=== PATIENT | female | born 1945 | race Caucasian/White ===

== ENCOUNTER → 2017-01-03 | Day surgery (SDC) | payer MEDICARE, BC ==
[~2017-01-03] MED LIST: ATEN25TA PO; BIOT300T PO; BUPIVACAINE/EPINEPHRINE 0.25% 50 ML VIAL ONE; BUPIVACAINE/EPINEPHRINE 0.5% PF 30 ML VIAL ONE; CALCTAB6 PO; CHOL1TAB42 PO; LACTATED RINGER'S 1000 ML INJ 1,000 ML ONE; LIDOCAINE 1%/EPINEPHrine 1:100,000 SOLN 20 ML VIAL ONE; MIDAZOLAM HCL 2 MG/2 ML VIAL ONE; MULT-135 PO; NEOMYCIN/POLYMYXIN/BACITRACIN OINT 15 GM TUBE ONE; ONDANSETRON HCL 4 MG/2 ML VIAL IV PUSH ONE; PROPOFOL 200 MG/20 ML AMP IV ONE; SODIUM CHLORIDE 0.9% 250 ML ADDBAG IV ONE; VANCOMYCIN HCL 1000 MG VIAL ONE; ZYRT10TA PO; ceFAZolin INJ 1,000 MG VIAL ONE
--- NOTE | 2017-01-03 10:55 | TN ---
cc: RUDOLPH NAPOLES M.D. DATE OF SURGERY 01/03/2017 PREOPERATIVE DIAGNOSIS Persistent draining wound x3 in the nipple-areolar complex right breast with skin lesions. POSTOPERATIVE DIAGNOSIS Persistent draining wound x3 in the nipple-areolar complex right breast with skin lesions, subcutaneous suture removal. PROCEDURE Excision of three chronic draining wounds at the 1 o'clock position, at the 5 o'clock position, and 11 o'clock position of the right nipple-areolar complex with removal of foreign body at the 11 o'clock position coursing to the 5 o'clock position of [place] suture. ANESTHESIA TIVA with local SURGEON Rudolph Napoles MD INDICATIONS This is a pleasant 71-year female who had some breast reconstruction. She has had these chronic draining wound at the 1, 5 and 11 o'clock position. She is desirous for surgical treatment. PROCEDURE The patient taken to the operating room, placed in the supine position. After IV antibiotics and time-out, the breast is prepped with Betadine. We had previously marked these three areas. An elliptical incision measuring approximately 1 x 1-1/2 cm is made at the one o 'clock position in a slightly vertical fashion to completely excise the offending lesion to the deep subcutaneous tissue. It is passed off the field. It is then closed with a interrupted 4-0 nylon suture. We then direct our attention to the 5 o'clock position. An elliptical incision is made along the nipple-areolar complex edge and the offending lesion is removed with an elliptical incision measuring approximately 1 x 1-1/2 cm. The skin is then reapproximated with a 4-0 nylon. A similar elliptical incision 1 x 1-1/2 cm made at the 11 o'clock position after anesthetizing with Marcaine solution. A [place] suture was found at this site and retrieved. It seemed to be coursing to the 1 o'clock position and the 5 o'clock position. This was sent down to pathology with the 11 o'clock position specimen. All three areas were irrigated and they were all closed with a 4-0 nylon suture. Steri-Strips were applied. A sterile bandage was applied. The patient tolerated the procedure well and had no immediate postop complications. Rudolph Napoles MD JSKYE/DJL /10:28 AM /10:40 AM [place]
== END | disposition home or self-care (01) ==
LOC: ESDC 08:48
PROVIDERS: ATTEND Surgery
DX: N61.1 Abscess of the breast and nipple (principal); T81.89XA Other complications of procedures, not elsewhere classified, initial encounter
CPT/HCPCS: 00400; 19020; 88305; J2250; J2405; J3010; J3370; J7120; J0690

== ENCOUNTER 2018-02-05 11:06 | Emergency (ER) | payer MEDICARE, BC ==
[2018-02-05] MEDS: oxyCODONE/ACETAMINOPHEN 5 MG/325 MG TAB PO ×2 (12:15→14:37)
== END 2018-02-05 14:54 | disposition home or self-care (01) ==
LOC: PHEFT 11:06
DX: S72.402A Unspecified fracture of lower end of left femur, initial encounter for closed fracture (principal); J45.909 Unspecified asthma, uncomplicated; I10 Essential (primary) hypertension; W01.0XXA Fall on same level from slipping, tripping and stumbling without subsequent striking against object, initial encounter; Y92.89 Other specified places as the place of occurrence of the external cause; Z86.12 Personal history of poliomyelitis; Z79.899 Other long term (current) drug therapy; Z88.6 Allergy status to analgesic agent; Z88.8 Allergy status to other drugs, medicaments and biological substances
CPT/HCPCS: 73564; 73700; 99284

== ENCOUNTER 2018-09-30 17:24 | Inpatient (IN) ==
--- NOTE | 2018-09-30 17:57 | ED ---
HPI General Chief Complaint: Fall Stated Complaint: Fall Time Seen by Provider: 09/30/18 17:37 Source: patient Mode of arrival: EMS History of Present Illness HPI Narrative: Patient is a 73-year-old female presented to the emergency room via EMS status post fall with complaints of left hip pain and inability to move her left leg. Patient has history of a hairline left femur fracture in January of this year. She also has a history of polio in the left leg in 1955. She reports that she was getting ready to go out for [place] when she slipped on a scarf and fell landing on her left hip. Denies any dizziness prior to the fall and denies hitting her head. Denies any loss of consciousness. Patient was unable to get up or move her leg immediately after the fall. Related Data Home Medications Medication Instructions Recorded Confirmed Zyrtec-D 10 mg PO QAM 09/30/18 09/30/18 atenolol 25 mg PO BID PRN 09/30/18 09/30/18 estradiol-norethindrone acet 0.5 tab PO DAILY 09/30/18 09/30/18 [Activella] lisinopril 10 mg PO DAILY PRN 09/30/18 09/30/18 Allergies Allergy/AdvReac Type Severity Reaction Status Date / Time aspirin Allergy Wheezing Verified 09/30/18 18:12 cephalexin [From Keflex] Allergy Wheezing Verified 09/30/18 18:15 ibuprofen Allergy Wheezing Verified 09/30/18 18:15 ketorolac [From Toradol] Allergy Wheezing Verified 09/30/18 18:15 metoprolol Allergy Wheezing Verified 09/30/18 21:19 Review of Systems ROS: all other systems reviewed are negative PMFSH Surgical History Surgical History Hx of breast augmentation (Acute) Social History Social History Substance History: No History of Abuse Second Hand Smoke Exposure: No Smoking Status: Never smoker How Often Do You Have a Drink Containing Alcohol: Monthly or less Recent Travel in [facility] within the Last 8 Weeks: No Recent Out of Country Travel within the Last 8 Weeks: No Immunization History Tetanus Immunization: <5 Years Exam Narrative Exam Narrative: GENERAL: Well-nourished, well-developed patient. SKIN: Focused skin assessment warm/dry. HEAD: Normocephalic. EYES: No scleral icterus. No injection or drainage. NECK: Supple, trachea midline. No JVD or lymphadenopathy. CARDIOVASCULAR: Regular rate and rhythm without murmurs, gallops, or rubs. RESPIRATORY: Breath sounds equal bilaterally. No accessory muscle use. GASTROINTESTINAL: Abdomen soft, non-tender, nondistended. MUSCULOSKELETAL: Left leg shortened and externally rotated. Muscle wasting noted left calf. Course Initial Documented Vital Signs Temperature 98.9 F 09/30/18 17:35 Pulse Rate 70 09/30/18 17:35 Respiratory Rate 20 09/30/18 17:35 Blood Pressure 150/67 H 09/30/18 17:35 Pulse Oximetry 100 09/30/18 17:35 Last Documented Vital Signs Temperature 98.1 F 10/01/18 08:00 Pulse Rate 62 10/01/18 08:00 Respiratory Rate 16 10/01/18 08:00 Blood Pressure 107/56 L 10/01/18 08:00 Pulse Oximetry 96 10/01/18 08:00 Medical Decision Making MDM Narrative Medical decision making narrative: Patient is a 73-year-old female with history of polio, who presents the emergency room status post fall earlier this afternoon. Reports she slipped on a scarf and fell landing on her left hip. She was unable to get up or move status post fall. Patient brought here via EMS. She was given 8 mg of morphine in route and now rates her pain a 6 out of 10. X-ray left hip and pelvis ordered. CBC, CMP, PT, PTT, and UA ordered. X-ray shows a left femoral intertrochanteric fracture. Spoke with Ellen Nelson, who advised admission. N.p.o. after midnight. Spoke with Dr. Hirsch who accepts admission. Medical Screen Exam Complete: Yes Emergency Medical Condition: Yes Differential Diagnosis Differential Diagnosis: Hip fracture/Femoral fracture/hip dislocation Lab Data Result diagrams: 10/01/18 06:19 10/01/18 06:19 Lab Results 09/30/18 09/30/18 09/30/18 Range/Units 17:55 17:55 17:55 WBC 13.1 H (4.0-11.0) th/mm3 RBC 4.11 (4.00-5.30) mil/mm3 Hgb 13.1 (11.6-15.3) gm/dL Hct 38.5 (35.0-46.0) % MCV 93.8 (80.0-100.0) fL MCH 31.8 (27.0-34.0) pg MCHC 33.9 (32.0-36.0) % RDW 13.5 (11.6-17.2) % Plt Count 255 (150-450) th/mm3 MPV 8.1 (7.0-11.0) fL Neut % (Auto) 85.7 H (16.0-70.0) % Lymph % (Auto) 8.9 L (9.0-44.0) % Antelope % (Auto) 4.8 (0.0-8.0) % Eos % (Auto) 0.3 (0.0-4.0) % Baso % (Auto) 0.3 (0.0-2.0) % Neut # (Auto) 11.3 H (1.8-7.7) th/mm3 Lymph # (Auto) 1.2 (1.0-4.8) th/mm3 Antelope # (Auto) 0.6 (0.0-0.9) th/mm3 Eos # (Auto) 0.0 (0.0-0.4) th/mm3 Baso # (Auto) 0.0 (0.0-0.2) th/mm3 WBC Differential . Differential Comment Auto diff final PT 11.3 (9.8-11.6) sec INR 1.1 Ratio APTT 26.1 (23.4-31.7) sec Sodium 138 (136-145) meq/L Potassium 3.5 (3.5-5.1) meq/L Chloride 105 (98-107) meq/L Carbon Dioxide 27.4 (21.0-32.0) meq/L Anion Gap 6 (5-15) meq/L BUN 15 (7-18) mg/dL Creatinine 0.51 (0.50-1.00) mg/dL Estimated GFR Greater than 89 (>89) mL/min Random Glucose 101 (74-106) mg/dL Calcium 8.3 L (8.5-10.1) mg/dL Total Bilirubin 0.6 (0.2-1.0) mg/dL AST 19 (15-37) U/L ALT 26 (10-53) U/L Alkaline Phosphatase 77 (45-117) U/L Total Protein 7.0 (6.4-8.2) g/dL Albumin 3.6 (3.4-5.0) g/dL Urine Color (Yellw/Straw) Urine Clarity (Clear) Urine pH (5.0-8.5) Ur Specific [place] (1.002-1.035) Urine Protein (Neg-Trace) mg/dL Urine Glucose (UA) (Negative) mg/dL Urine Ketones (Negative) mg/dL Urine Occult Blood (Negative) Urine Nitrate (Negative) Urine Bilirubin (Negative) Urine Urobilinogen (Less than 2) mg/dL Ur Leukocyte Esterase (Negative) Urine RBC (0-3) /hpf Urine WBC (0-5) /hpf Ur Squamous Epith Cells (0-5) /hpf Urine Mucus (Occasional) /lpf Micro UA Comment Ur Microscopic Review Urine Culture Comments 09/30/18 10/01/18 10/01/18 Range/Units 17:55 06:19 06:19 WBC 10.0 (4.0-11.0) th/mm3 RBC 3.82 L (4.00-5.30) mil/mm3 Hgb 12.2 (11.6-15.3) gm/dL Hct 36.1 (35.0-46.0) % MCV 94.3 (80.0-100.0) fL MCH 31.9 (27.0-34.0) pg MCHC 33.9 (32.0-36.0) % RDW 13.7 (11.6-17.2) % Plt Count 240 (150-450) th/mm3 MPV 8.3 (7.0-11.0) fL Neut % (Auto) 71.7 H (16.0-70.0) % Lymph % (Auto) 18.8 (9.0-44.0) % Antelope % (Auto) 8.4 H (0.0-8.0) % Eos % (Auto) 0.8 (0.0-4.0) % Baso % (Auto) 0.3 (0.0-2.0) % Neut # (Auto) 7.2 (1.8-7.7) th/mm3 Lymph # (Auto) 1.9 (1.0-4.8) th/mm3 Antelope # (Auto) 0.8 (0.0-0.9) th/mm3 Eos # (Auto) 0.1 (0.0-0.4) th/mm3 Baso # (Auto) 0.0 (0.0-0.2) th/mm3 WBC Differential . Differential Comment Auto diff final PT (9.8-11.6) sec INR Ratio APTT (23.4-31.7) sec Sodium 138 (136-145) meq/L Potassium 3.5 (3.5-5.1) meq/L Chloride 105 (98-107) meq/L Carbon Dioxide 27.0 (21.0-32.0) meq/L Anion Gap 6 (5-15) meq/L BUN 13 (7-18) mg/dL Creatinine 0.52 (0.50-1.00) mg/dL Estimated GFR Greater than 89 (>89) mL/min Random Glucose 104 (74-106) mg/dL Calcium 7.7 L (8.5-10.1) mg/dL Total Bilirubin 0.6 (0.2-1.0) mg/dL AST 18 (15-37) U/L ALT 24 (10-53) U/L Alkaline Phosphatase 69 (45-117) U/L Total Protein 6.7 (6.4-8.2) g/dL Albumin 3.1 L (3.4-5.0) g/dL Urine Color Yellow (Yellw/Straw) Urine Clarity Hazy H (Clear) Urine pH 7.0 (5.0-8.5) Ur Specific [place] 1.013 (1.002-1.035) Urine Protein Negative (Neg-Trace) mg/dL Urine Glucose (UA) Negative (Negative) mg/dL Urine Ketones Trace H (Negative) mg/dL Urine Occult Blood Negative (Negative) Urine Nitrate Negative (Negative) Urine Bilirubin Negative (Negative) Urine Urobilinogen Less than 2 (Less than 2) mg/dL Ur Leukocyte Esterase Negative (Negative) Urine RBC 1 (0-3) /hpf Urine WBC 1 (0-5) /hpf Ur Squamous Epith Cells 5 (0-5) /hpf Urine Mucus Few H (Occasional) /lpf Micro UA Comment Culture not ind Ur Microscopic Review Not Reportable Urine Culture Comments Culture not ind Imaging Data Radiologist's impression: Femur X-Ray 09/30/18 17:38 CONCLUSION: 1. Comminuted left femoral intertrochanteric fracture. Hip X-Ray 09/30/18 17:38 CONCLUSION: 1. Comminuted intertrochanteric left femoral fracture. Discharge Plan Discharge Disposition Patient Disposition: ED Admit(ED Internal Use Only) Discharge Condition Condition: Stable Discharge Order Discharge Orders: ED Use Only Admit Order (Routine); Ordered 09/30/18 Ordered By: Nellie Curtis Discharge Details Diagnosis: Closed intertrochanteric fracture Physicians Team ED Provider: Lucretia Jang ED Midlevel Provider: Nellie Curtis Primary Care Provider: marleen Nelson Christophe C Attending Provider: Mayelin Montano Other Providers: Syed Antonio Status ED Status: Left Department Discharge Information Discharge Date/Time: 09/30/18 21:55
[2018-09-30] MEDS: Morphine Inj 4 MG/ML Vial IV.PUSH PRN (18:13)
[2018-09-30 18:17] LABS: Baso % (Auto) 0.3 % (0.0-2.0); Eos % (Auto) 0.3 % (0.0-4.0); Hematocrit 38.5 % (35.0-46.0); Hemoglobin 13.1 gm/dL (11.6-15.3); Lymph # (Auto) 1.2 th/mm3 (1.0-4.8); Lymph % (Auto) 8.9 % (9.0-44.0); Mean Corpuscular HGB Conc 33.9 % (32.0-36.0); Mean Corpuscular Hemoglobin 31.8 pg (27.0-34.0); Mean Corpuscular Volume 93.8 fL (80.0-100.0); Mean Platelet Volume 8.1 fL (7.0-11.0); Mono # (Auto) 0.6 th/mm3 (0.0-0.9); Mono % (Auto) 4.8 % (0.0-8.0); Neut # (Auto) 11.3 th/mm3 (1.8-7.7); Neut % (Auto) 85.7 % (16.0-70.0); Platelet Count 255 th/mm3 (150-450); Red Blood Count 4.11 mil/mm3 (4.00-5.30); Red Cell Distribution Width 13.5 % (11.6-17.2); White Blood Count 13.1 th/mm3 (4.0-11.0)
[2018-09-30 18:27] LABS: Albumin 3.6 g/dL (3.4-5.0); Anion Gap 6 meq/L (5-15); Aspartate Aminotransferase 19 U/L (15-37); Blood Urea Nitrogen 15 mg/dL (7-18); Calcium 8.3 mg/dL (8.5-10.1); Carbon Dioxide 27.4 meq/L (21.0-32.0); Chloride 105 meq/L (98-107); Glomerular Filtration Rate Greater Than 89 mL/min (>89); Glucose,Random 101 mg/dL (74-106); Potassium 3.5 meq/L (3.5-5.1); Sodium 138 meq/L (136-145)
[2018-09-30 18:28] LABS: Activated Partial Thrombo Time 26.1 sec (23.4-31.7); INR 1.1 Ratio; Prothrombin Time 11.3 sec (9.8-11.6)
[2018-09-30 18:30] LABS: Alanine Aminotransferase 26 U/L (10-53); Alkaline Phosphatase 77 U/L (45-117)
[2018-09-30 18:36] LABS: Bilirubin,Urine Negative (Negative); Clarity,Urine Hazy (Clear); Color,Urine Yellow (Yellw/Straw); Glucose,Urine (UA) Negative (Negative); Leukocyte Esterase,Urine Negative (Negative); Mucus,Urine Few /lpf (Occasional); Nitrite,Urine Negative (Negative); Specific Gravity,Urine 1.013 (1.002-1.035); Squamous Epithelial Cell,Urine 5 /hpf (0-5)
--- NOTE | 2018-09-30 18:47 | XR ---
EXAM DATE: 09/30/2018 6:39 PM EST AGE/SEX: 73 years / Female INDICATIONS: Left hip pain, fell CLINICAL DATA: This is the patient's initial encounter. Patient reports that signs and symptoms have been present for 1 day and indicates a pain score of 10/10. MEDICAL/SURGICAL HISTORY: None. None. COMPARISON: [facility], FEMUR LEFT 2V, 09/30/2018. . FINDINGS: There is a comminuted angulated intertrochanteric fracture of the left femur. Soft tissues are grossl y unremarkable. Remaining osseous structures appear intact. No radiopaque foreign bodies. CONCLUSION: 1. Comminuted intertrochanteric left femoral fracture. Electronically signed by: Flynn Parks MD Board Certified Radiologist 09/30/2018 6:46 PM ES T
--- NOTE | 2018-09-30 18:49 | XR ---
EXAM DATE: 09/30/2018 6:38 PM EST AGE/SEX: 73 years / Female INDICATIONS: Left proximal femur pain, fell CLINICAL DATA: This is the patient's initial encounter. Patient reports that signs and symptoms have been present for 1 day and indicates a pain score of 10/10. MEDICAL/SURGICAL HISTORY: None. None. COMPARISON: [facility], CT KNEE LEFT W/O CONTRAST, 02/05/2018. . FINDINGS: Comminuted angulated intertrochanteric fracture of the left femoral neck. Remaining visualized osseou s structures are intact. Soft tissues are grossly unremarkable. CONCLUSION: 1. Comminuted left femoral intertrochanteric fracture. Electronically signed by: Flynn Parks MD Board Certified Radiologist 09/30/2018 6:48 PM RUBY T
[2018-09-30] MEDS ORDERED: Naloxone Inj 0.4 MG/ML Vial IV.PUSH PRN (19:28)
[2018-09-30] MEDS ORDERED: Bisacodyl 10 MG Supp RECTAL PRN (19:28)
--- NOTE | 2018-09-30 19:30 | P.HPIM ---
History of Present Illness Primary Care Physician: Syed Seals Mai, m.d., History of Present Illness: This is a 73-year-old female with a PMH of HTN, Asthma and h/o Polio who was brought to the ER by EMS for c/o left hip pain after a fall. Pt states she was getting ready to go out when she tripped over a scarf, landed on left hip, +severe pain, 10/10, non-radiating, worse w/ movement. H/o left femur hairline fracture January 2018 for which she follows w/ Dr. Morillo. No other injuries reported, no LOC or head trauma. On arrival, BP 150/67, HR 70, O2 sat 100% on 2L NC, Afebrile. WBC 13.1. Chemistry unremarkable. UA negative. Hip X-ray comminuted intertrochanteric left femoral fracture. Dr. Antonio consulted, plan is for surgery tomorrow. Diagnosis (1) Closed intertrochanteric fracture: (2) Fall: (3) Leukocytosis: Inpatient Certification Inpatient Certification: I certify that the inpatient services were ordered in accordance with Medicare regulations governing the order. This includes certification that hospital inpatient services are reasonable and necessary and in the case of services not specified as inpatient-only under 42 CFR 419.22(n), that they are appropriately provided as inpatient services in accordance to with the 2-midnight benchmark under 43 CFR 412.3(e) Estimated Total Length of Stay (Days): 2 Plans for Post Hospital Care: Not yet determined Review of Systems PAST FAMILY HISTORY: Reviewed. No h/o DM or CAD Review of Systems: all other systems reviewed are negative [facility] Social History Social History Substance History: No History of Abuse Second Hand Smoke Exposure: No Smoking Status: Never smoker How Often Do You Have a Drink Containing Alcohol: Monthly or less Recent Travel in [place] within the Last 8 Weeks: No Recent Out of Country Travel within the Last 8 Weeks: No Immunization History Tetanus Immunization: <5 Years Medications and Allergies Allergies Allergy/AdvReac Type Severity Reaction Status Date / Time aspirin Allergy Wheezing Verified 09/30/18 18:12 cephalexin [From Keflex] Allergy Wheezing Verified 09/30/18 18:15 ibuprofen Allergy Wheezing Verified 09/30/18 18:15 ketorolac [From Toradol] Allergy Wheezing Verified 09/30/18 18:15 metoprolol Allergy Wheezing Verified 09/30/18 21:19 Home Medications Medication Instructions Recorded Confirmed Type Zyrtec-D 10 mg PO QAM 09/30/18 09/30/18 History atenolol 25 mg PO BID PRN 09/30/18 09/30/18 History estradiol-norethindrone acet 0.5 tab PO DAILY 09/30/18 09/30/18 History [Activella] lisinopril 10 mg PO DAILY PRN 09/30/18 09/30/18 History Active Medications: Active Medications Acetaminophen (Tylenol) 650 mg PO Q4H PRN PRN Reason: Temp > 100.4 Al Hydroxide/Mg Hydroxide (Milk Of Magnesia Liq) 30 ml PO Q12H PRN PRN Reason: Mild Constipation Bisacodyl (Dulcolax Supp) 10 mg RECTAL DAILY PRN PRN Reason: SEVERE CONSITIPATION Lactulose (Lactulose Liq) 30 ml PO DAILY PRN PRN Reason: SEVERE CONSITIPATION Morphine Sulfate (Morphine Inj) 4 mg IV.PUSH Q4H PRN PRN Reason: Acute Pain Last Admin: 09/30/18 18:13 Dose: 4 mg Physical Exam Vital signs: Last Vital Signs Temp 98.9 F 09/30/18 17:35 Pulse 70 09/30/18 17:35 Resp 20 09/30/18 17:35 BP 150/67 H 09/30/18 17:35 Pulse Ox 100 09/30/18 17:35 Intake & Output 09/28/18 09/29/18 09/30/18 10/01/18 06:59 06:59 06:59 06:59 Weight 63.503 kg Narrative: PE: GENERAL: Very pleasant middle-aged white female in no acute distress. SKIN: Focused skin assessment warm and dry. HEENT: PERRLA, EOMI. No scleral icterus or conjunctival pallor. No lid lag or facial droop. CARDIOVASCULAR: Regular rate and rhythm. No obvious murmurs to auscultation. No chest tenderness to palpation. RESPIRATORY: No obvious rhonchi or wheezing. Clear to auscultation. Breath sounds equal bilaterally. GASTROINTESTINAL: Abdomen soft, non-tender, nondistended. BS normal. MUSCULOSKELETAL: Extremities without clubbing, cyanosis, or edema. No obvious deformities. Decreased ROM of LLE due to injury NEUROLOGICAL: Awake, alert and oriented x4. No focal neurologic deficits. Moving both upper and lower extremities spontaneously. PSYCHIATRIC: Appropriate mood and affect. Insight and judgment normal. Results Labs CBC & Chem 7: 09/30/18 17:55 09/30/18 17:55 Imaging Impressions Femur X-Ray 09/30/18 17:38 CONCLUSION: 1. Comminuted left femoral intertrochanteric fracture. Hip X-Ray 09/30/18 17:38 CONCLUSION: 1. Comminuted intertrochanteric left femoral fracture. Caprini VTE Risk Assessment Caprini VTE Risk Assessment: No/Low Risk (score <= 1) Caprini Risk Assessment Model: Point Value = 1 Point Value = 2 Point Value = 3 Point Value = 5 Age 41-60 Minor surgery BMI > 25 kg/m2 Swollen legs Varicose veins or History of unexplained or recurrent spontaneous Oral contraceptives or hormone replacement Sepsis (< 1 month) Serious lung disease, including pneumonia (< 1 month) Abnormal pulmonary function Acute myocardial infarction Congestive heart failure (< 1 month) History of inflammatory bowel disease Medical patient at bed rest Age 61-74 Arthroscopic surgery Major open surgery (> 45 min) Laparoscopic surgery (> 45 min) Malignancy Confined to bed (> 72 hours) Immobilizing plaster cast Central venous access Age >= 75 History of VTE Family history of VTE Factor V Leiden Prothrombin [id number] Lupus anticoagulant Anticardiolipin antibodies Elevated serum homocysteine Heparin-induced thrombocytopenia Other congenital or acquired thrombophilia Stroke (< 1 month) Elective arthroplasty Hip, pelvis, or leg fracture Acute spinal cord injury (< 1 month) Prophylaxis Regimen: Total Risk Factor Score Risk Level Prophylaxis Regimen 0-1 Low Early ambulation 2 Moderate Order ONE of the following: *Sequential Compression Device (SCD) *Heparin 5000 units SQ BID 3-4 Higher Order ONE of the following medications: *Heparin 5000 units SQ TID *Enoxaparin/Lovenox 40 mg SQ daily (WT < 150 kg, CrCl > 30 mL/min) *Enoxaparin/Lovenox 30 mg SQ daily (WT < 150 kg, CrCl > 10-29 mL/min) *Enoxaparin/Lovenox 30 mg SQ BID (WT < 150 kg, CrCl > 30 mL/min) AND/OR *Sequential Compression Device (SCD) 5 or more Highest Order ONE of the following medications: *Heparin 5000 units SQ TID (Preferred with Epidurals) *Enoxaparin/Lovenox 40 mg SQ daily (WT < 150 kg, CrCl > 30 mL/min) *Enoxaparin/Lovenox 30 mg SQ daily (WT < 150 kg, CrCl > 10-29 mL/min) *Enoxaparin/Lovenox 30 mg SQ BID (WT < 150 kg, CrCl > 30 mL/min) AND *Sequential Compression Device (SCD) Assessment and Plan (1) Closed intertrochanteric fracture: Code(s): S72.143A - Displaced intertrochanteric fracture of unspecified femur, initial encounter for closed fracture Status: Acute (2) Fall: Code(s): W19.XXXA - Unspecified fall, initial encounter Status: Acute (3) Leukocytosis: Code(s): D72.829 - Elevated white blood cell count, unspecified Status: Acute Plan A/P: 1. Fall: s/p mechanical fall, no head trauma or LOC reported, no other injuries noted. 2. Left Hip Fx: Hip X-ray w/ comminuted left intertrochanteric hip fracture, Dr. Antonio consulted, plan for surgical intervention, NPO after midnight, analgesics/antiemetics as needed. 3. Leukocytosis: WBC 13, likely related to fall/injury, no obvious infectious etiology noted, will repeat labs in am. 4. DVT Prophylaxis: Anticoagulation post op 5. Social work for d/c planning as needed. 6. Case discussed w/ ER physician at length, labs/records/imaging reviewed by me.
[2018-09-30] MEDS ORDERED: Morphine Inj 4 MG/ML Vial IV.PUSH PRN (19:45)
[2018-09-30] MEDS: Sod Chloride 0.9% Inj 1,000 ML IV.CONT SCH (19:58)
[2018-09-30] MEDS: Senna/Docusate Sodium 8.6/50 MG Tablet PO SCH (22:31)
[2018-09-30] MEDS ORDERED: Atenolol 25 MG Tablet PO PRN (22:55)
[2018-10-01] MEDS: Morphine Inj 4 MG/ML Vial IV.PUSH PRN ×5 (00:19→23:40)
[2018-10-01] MEDS ORDERED: Chlorhexidine Gluconate 2% 1 Pack (2 Cloths) TOPICAL ONE (02:47)
[2018-10-01] MEDS ORDERED: Sodium Chlor 0.9% Inj 500 ML IV.SIG SCH (03:00)
[2018-10-01] MEDS: Sod Chloride 0.9% Inj 1,000 ML IV.CONT SCH ×2 (06:00→19:15)
[2018-10-01 07:15] LABS: Baso % (Auto) 0.3 % (0.0-2.0); Eos # (Auto) 0.1 th/mm3 (0.0-0.4); Eos % (Auto) 0.8 % (0.0-4.0); Hematocrit 36.1 % (35.0-46.0); Hemoglobin 12.2 gm/dL (11.6-15.3); Lymph # (Auto) 1.9 th/mm3 (1.0-4.8); Lymph % (Auto) 18.8 % (9.0-44.0); Mean Corpuscular HGB Conc 33.9 % (32.0-36.0); Mean Corpuscular Hemoglobin 31.9 pg (27.0-34.0); Mean Corpuscular Volume 94.3 fL (80.0-100.0); Mean Platelet Volume 8.3 fL (7.0-11.0); Mono # (Auto) 0.8 th/mm3 (0.0-0.9); Mono % (Auto) 8.4 % (0.0-8.0); Neut # (Auto) 7.2 th/mm3 (1.8-7.7); Neut % (Auto) 71.7 % (16.0-70.0); Platelet Count 240 th/mm3 (150-450); Red Blood Count 3.82 mil/mm3 (4.00-5.30); Red Cell Distribution Width 13.7 % (11.6-17.2)
[2018-10-01 07:29] LABS: Albumin 3.1 g/dL (3.4-5.0); Anion Gap 6 meq/L (5-15); Aspartate Aminotransferase 18 U/L (15-37); Blood Urea Nitrogen 13 mg/dL (7-18); Calcium 7.7 mg/dL (8.5-10.1); Chloride 105 meq/L (98-107); Glomerular Filtration Rate Greater Than 89 mL/min (>89); Glucose,Random 104 mg/dL (74-106); Potassium 3.5 meq/L (3.5-5.1); Sodium 138 meq/L (136-145)
[2018-10-01 07:31] LABS: Alanine Aminotransferase 24 U/L (10-53)
[2018-10-01 07:33] LABS: Alkaline Phosphatase 69 U/L (45-117); Total Protein 6.7 g/dL (6.4-8.2)
[2018-10-01] MEDS ORDERED: Albumin Human 25% Inj 0 ML IV.SIG ONE (08:24)
[2018-10-01] MEDS: Lisinopril 10 MG Tablet PO SCH (10:38)
[2018-10-01] MEDS: Senna/Docusate Sodium 8.6/50 MG Tablet PO SCH ×2 (10:38→20:00)
--- NOTE | 2018-10-01 14:54 | P.PNIM ---
Subjective Interval history: The patient is in bed she appears in not acute distress at this time. No pain. However patient is anxious regarding surgery today and she is refusing surgery today she wants surgery tomorrow and also by Dr. Evans. Will advance diet. Orthopedic doctor also came and evaluated the patient and spoke with the patient regarding pros and cons of postponing surgery. Patient decided to do surgery tomorrow she understands surgery might be postponed. Patient has no fever or chills. Pain is fairly controlled by medications. Physical Exam Vital signs: Last Vital Signs Temp 98.1 F 10/01/18 12:00 Pulse 62 10/01/18 12:00 Resp 16 10/01/18 12:00 BP 109/55 L 10/01/18 12:00 Pulse Ox 95 10/01/18 12:00 Intake & Output 09/29/18 09/30/18 10/01/18 10/02/18 06:59 06:59 06:59 06:59 Intake Total 1000 / 1000 Balance 1000 / 1000 Weight 67.3 kg Narrative: PE: GENERAL: Very pleasant middle-aged white female in no acute distress. SKIN: Focused skin assessment warm and dry. HEENT: PERRLA, EOMI. No scleral icterus or conjunctival pallor. No lid lag or facial droop. CARDIOVASCULAR: Regular rate and rhythm. No obvious murmurs to auscultation. No chest tenderness to palpation. RESPIRATORY: No obvious rhonchi or wheezing. Clear to auscultation. Breath sounds equal bilaterally. GASTROINTESTINAL: Abdomen soft, non-tender, nondistended. BS normal. MUSCULOSKELETAL: Extremities without clubbing, cyanosis, or edema. No obvious deformities. Decreased ROM of LLE due to injury NEUROLOGICAL: Awake, alert and oriented x4. No focal neurologic deficits. Moving both upper and lower extremities spontaneously. PSYCHIATRIC: Appropriate mood and affect. Insight and judgment normal. Results Labs CBC & Chem 7: 10/01/18 06:19 10/01/18 06:19 Imaging Imaging: Impressions Femur X-Ray 09/30/18 17:38 CONCLUSION: 1. Comminuted left femoral intertrochanteric fracture. Hip X-Ray 09/30/18 17:38 CONCLUSION: 1. Comminuted intertrochanteric left femoral fracture. Assessment and Plan (1) Closed intertrochanteric fracture: Code(s): S72.143A - Displaced intertrochanteric fracture of unspecified femur, initial encounter for closed fracture Status: Acute (2) Fall: Code(s): W19.XXXA - Unspecified fall, initial encounter Status: Acute (3) Leukocytosis: Code(s): D72.829 - Elevated white blood cell count, unspecified Status: Acute Plan Fall s/p mechanical fall, no head trauma or LOC reported, no other injuries noted. Left Hip Fx: Hip X-ray w/ comminuted left intertrochanteric hip fracture, Dr. Antonio consulted, plan for surgical intervention, NPO after midnight, analgesics/antiemetics as needed. Leukocytosis: WBC 13, likely related to fall/injury, no obvious infectious etiology noted, will repeat labs in am. Patient with a h/o severe osteoporosis H/o poliomyelitis DVT Prophylaxis: Anticoagulation post op CM consulted for d/c planning as needed. Case discussed with the patient,. family at bedside, orthopedic doctor Plan for surgery tomorrow Progress Note: Quality VTE Deep Vein Thrombosis/Pulmonary Embolism Present on Admission: No
--- NOTE | 2018-10-01 15:41 | ECG ---
Date Performed: 09/30/2018 Time Performed: 22:27:46 PTAGE: 73 years EKG: Sinus rhythm Compared to previous tracing, previous Left axis deviation has resolved NORMAL ECG PREVIOUS TRACING : 04/19/2016 08.19 DOCTOR: Anil Pastor Interpretating Date/Time 10/01/2018 15:40:33
--- NOTE | 2018-10-01 17:00 | P.CONOP ---
[facility] Orthopedics Consult Note - [facility] Consult date: 10/01/18 Consult reason: fracture Chief complaint: Intertrochanteric fracture Narrative: 73-year-old female with history of asthma, hypertension, polio. Sustained a mechanical fall while celebrating resulting in a left intertrochanteric femur fracture. She endorsed acute onset hip pain and inability to bear weight. Patient uses a walker at baseline given underlying diagnosis of polio. She denies paresthesias to lower extremity. She denies right lower or bilateral upper extremity complaint. Review of Systems Constitutional: Denies chills, Denies fever(s) Ears, Nose, Mouth, and Throat: Denies headache(s) Cardiovascular: Denies chest pain Respiratory: Denies cough, Denies wheezing Gastrointestinal: Denies abdominal pain Musculoskeletal: Reports joint pain Neurologic: Denies tingling/numbness/burning sensations Psychiatric: Denies anxiety, Denies depression PMFSH - History History Provided By: Patient - Medical History Medical History: Medical History (Last Reviewed 10/01/18 @ 07:45 by Isrrael Peterson) Asthma HTN (hypertension) Polio - Surgical History Surgical History: Surgical History (Last Updated 09/30/18 @ 23:56 by Emilie Santana RN) Hx of breast augmentation - Tobacco History Second Hand Smoke Exposure: No Smoking Status: Never smoker - Alcohol History How Often Do You Have a Drink Containing Alcohol: Monthly or less - Substance Use History Substance History: No History of Abuse - Travel History Recent Travel in the [place] Within the Last 8 Weeks: No Recent Travel Out of the Country Within the Last 8 Weeks: No - Immunization History Tetanus Immunization: <5 Years Hx Influenza Vaccine This Season: Yes Medications and Allergies Active Medications: Active Medications Acetaminophen (Tylenol) 650 mg PO Q4H PRN PRN Reason: Temp > 100.4 Al Hydroxide/Mg Hydroxide (Milk Of Magnesia Liq) 30 ml PO Q12H PRN PRN Reason: Mild Constipation Atenolol (Tenormin) 25 mg PO BID PRN PRN Reason: Hypertension Bisacodyl (Dulcolax Supp) 10 mg RECTAL DAILY PRN PRN Reason: SEVERE CONSITIPATION Sodium Chloride (Ns Inj) 1,000 mls @ 100 mls/hr IV.CONT .Q10H [facility] Last Admin: 10/01/18 06:00 Dose: 100 mls/hr Sodium Chloride (Ns Inj) 500 mls @ 30 mls/hr IV.SIG .Q10H [facility] Last Admin: 10/01/18 12:02 Dose: Not Given Lactated Ringer's (Lr 1000 Ml Inj) 1,000 mls @ 30 mls/hr IV.SIG .Q24H [facility] Stop: 10/02/18 02:59 Lactulose (Lactulose Liq) 30 ml PO DAILY PRN PRN Reason: SEVERE CONSITIPATION Lisinopril (Prinivil) 10 mg PO DAILY [facility] Last Admin: 10/01/18 10:38 Dose: Not Given Morphine Sulfate (Morphine Inj) 4 mg IV.PUSH Q4H PRN PRN Reason: Acute Pain Last Admin: 10/01/18 10:29 Dose: 4 mg Morphine Sulfate (Morphine Inj) 2 mg IV.PUSH Q4H PRN PRN Reason: PAIN 6-10 Last Admin: 09/30/18 20:17 Dose: 2 mg Naloxone HCl (Narcan Inj) 0.4 mg IV.PUSH UNSCH PRN PRN Reason: SEE LABEL COMMENTS Ondansetron HCl (Zofran Inj) 4 mg IV.PUSH Q6H PRN PRN Reason: NAUSEA OR VOMITING Last Admin: 10/01/18 10:29 Dose: 4 mg Oxycodone/Acetaminophen (Percocet 5/325 Mg) 1 tab PO Q4H PRN PRN Reason: PAIN SCALE 3 TO 5 Senna/Docusate Sodium (Katarina-Colace) 1 tab PO BID [facility] Last Admin: 10/01/18 10:38 Dose: Not Given Sennosides (Senokot) 17.2 mg PO Q12H PRN PRN Reason: Moderate Constipation Sodium Chloride (Ns Flush) 2 ml IV.FLUSH BID [facility] Last Admin: 10/01/18 10:39 Dose: Not Given Sodium Chloride (Ns Flush) 2 ml IV.FLUSH PRN PRN PRN Reason: FLUSH AFTER USING IV ACCESS Allergies Allergy/AdvReac Type Severity Reaction Status Date / Time aspirin Allergy Wheezing Verified 09/30/18 18:12 cephalexin [From Keflex] Allergy Wheezing Verified 09/30/18 18:15 ibuprofen Allergy Wheezing Verified 09/30/18 18:15 ketorolac [From Toradol] Allergy Wheezing Verified 09/30/18 18:15 metoprolol Allergy Wheezing Verified 09/30/18 21:19 Home Medications Medication Instructions Recorded Confirmed Type Zyrtec-D 10 mg PO QAM 09/30/18 09/30/18 History atenolol 25 mg PO BID PRN 09/30/18 09/30/18 History estradiol-norethindrone acet 0.5 tab PO DAILY 09/30/18 09/30/18 History [Activella] lisinopril 10 mg PO DAILY PRN 09/30/18 09/30/18 History Exam Vital signs: Vital Signs 09/30/18 17:35 09/30/18 19:44 09/30/18 21:00 Temperature 98.9 F Pulse Rate 70 66 Respiratory Rate 20 18 2 L Blood Pressure 150/67 H 126/59 L Pulse Oximetry 100 97 09/30/18 21:33 09/30/18 23:42 10/01/18 00:21 Temperature 97.7 F 98.6 F Pulse Rate 64 92 H Respiratory Rate 18 18 18 Blood Pressure 133/62 109/56 L Pulse Oximetry 95 94 L 10/01/18 05:00 10/01/18 06:14 10/01/18 08:00 Temperature 98.3 F 98.1 F Pulse Rate 68 62 Respiratory Rate 18 18 16 Blood Pressure 134/60 107/56 L Pulse Oximetry 95 96 10/01/18 10:31 10/01/18 12:00 Temperature 98.1 F Pulse Rate 62 Respiratory Rate 20 16 Blood Pressure 109/55 L Pulse Oximetry 95 Intake & Output 09/30/18 10/01/18 10/01/18 18:59 06:59 18:59 Intake Total 1000 / 1000 Balance 1000 / 1000 Weight 63.503 kg 67.3 kg Intake: IV 1000 / 1000 NS Inj 1,000 ML @ 100 mls/hr IV 1000 / 1000 .CONT .Q10H [facility] Rx#:[id number] Oral 0 / 0 Other: # Voids 1 Date of Last Bowel Movement 10/31/18 # Bowel Movements 0 Weight On Admission 63.5 kg - Constitutional no acute distress - Routine HEENT Exam Head: Present: normocephalic, atraumatic - Routine Respiratory Exam Present: accessory muscle use - Routine Cardiovascular Exam Present: RRR - Routine Abdominal Exam Present: soft. Absent: distended - Routine Extremities Exam Comments: Focused evaluation of the left lower extremity demonstrates a positive logroll. No tenderness about the knee ankle or foot. Screening evaluation of the right lower and bilateral upper extremity demonstrates full active range of motion of the joints. Painless range of motion. Sensation is grossly intact throughout. 2+ DP and PT pulse to the left lower extremity. Sensation intact to the sural, saphenous, SP, DP, tibial nerve distribution. Negative EHL/FHL/ to be also anterior/gastroc which is baseline secondary to polio. Results - Labs Result Diagrams: 10/01/18 06:19 10/01/18 06:19 Labs: Laboratory Results - last 24 hr 09/30/18 09/30/18 09/30/18 17:55 17:55 17:55 WBC 13.1 H RBC 4.11 Hgb 13.1 Hct 38.5 MCV 93.8 MCH 31.8 MCHC 33.9 RDW 13.5 Plt Count 255 MPV 8.1 Neut % (Auto) 85.7 H Lymph % (Auto) 8.9 L [place] % (Auto) 4.8 Eos % (Auto) 0.3 Baso % (Auto) 0.3 Neut # (Auto) 11.3 H Lymph # (Auto) 1.2 [place] # (Auto) 0.6 Eos # (Auto) 0.0 Baso # (Auto) 0.0 WBC Differential . Differential Comment Auto diff final PT 11.3 INR 1.1 APTT 26.1 Sodium 138 Potassium 3.5 Chloride 105 Carbon Dioxide 27.4 Anion Gap 6 BUN 15 Creatinine 0.51 Estimated GFR Greater than 89 Random Glucose 101 Calcium 8.3 L Total Bilirubin 0.6 AST 19 ALT 26 Alkaline Phosphatase 77 Total Protein 7.0 Albumin 3.6 Urine Color Urine Clarity Urine pH Ur Specific [place] Urine Protein Urine Glucose (UA) Urine Ketones Urine Occult Blood Urine Nitrate Urine Bilirubin Urine Urobilinogen Ur Leukocyte Esterase Urine RBC Urine WBC Ur Squamous Epith Cells Urine Mucus Micro UA Comment Ur Microscopic Review Urine Culture Comments 09/30/18 10/01/18 10/01/18 17:55 06:19 06:19 WBC 10.0 RBC 3.82 L Hgb 12.2 Hct 36.1 MCV 94.3 MCH 31.9 MCHC 33.9 RDW 13.7 Plt Count 240 MPV 8.3 Neut % (Auto) 71.7 H Lymph % (Auto) 18.8 [place] % (Auto) 8.4 H Eos % (Auto) 0.8 Baso % (Auto) 0.3 Neut # (Auto) 7.2 Lymph # (Auto) 1.9 [place] # (Auto) 0.8 Eos # (Auto) 0.1 Baso # (Auto) 0.0 WBC Differential . Differential Comment Auto diff final PT INR APTT Sodium 138 Potassium 3.5 Chloride 105 Carbon Dioxide 27.0 Anion Gap 6 BUN 13 Creatinine 0.52 Estimated GFR Greater than 89 Random Glucose 104 Calcium 7.7 L Total Bilirubin 0.6 AST 18 ALT 24 Alkaline Phosphatase 69 Total Protein 6.7 Albumin 3.1 L Urine Color Yellow Urine Clarity Hazy H Urine pH 7.0 Ur Specific [place] 1.013 Urine Protein Negative Urine Glucose (UA) Negative Urine Ketones Trace H Urine Occult Blood Negative Urine Nitrate Negative Urine Bilirubin Negative Urine Urobilinogen Less than 2 Ur Leukocyte Esterase Negative Urine RBC 1 Urine WBC 1 Ur Squamous Epith Cells 5 Urine Mucus Few H Micro UA Comment Culture not ind Ur Microscopic Review Not Reportable Urine Culture Comments Culture not ind - Diagnostic results Imaging: Impressions Femur X-Ray 09/30/18 17:38 CONCLUSION: 1. Comminuted left femoral intertrochanteric fracture. Hip X-Ray 09/30/18 17:38 CONCLUSION: 1. Comminuted intertrochanteric left femoral fracture. Assessment and Plan - Assessment and Plan 73-year-old female with history of asthma, hypertension, polio. Uses walker at baseline secondary to polio. Sustained a left intertrochanteric femur fracture. We discussed recommendations with Christelle and her son at bedside for open reduction internal fixation. We discussed the relevant risk, benefits, expected postoperative course and alternatives for surgical management. We showed her her x-rays and reviewed the fracture pattern. She would like to carefully consider her surgical options. I discussed recommendations for surgical management within 24-48 hours to prevent inpatient complications. She understood this discussion and will make a surgical decision in the coming day. She has elected to to eat and drink today and is not inclined to proceed with surgery today, despite surgery being offered and an OR slot reserved. Transfer of care will be facilitated to Dr. Evans's team for possible surgical management on Sunday. She understands that she may have surgery delayed, pending OR availability at that time.
[2018-10-01] MEDS: Acetaminophen 325 MG Tablet PO PRN (20:04)
[2018-10-02] MEDS: Sod Chloride 0.9% Inj 1,000 ML IV.CONT SCH (02:00)
[2018-10-02] MEDS ORDERED: Chlorhexidine Gluconate 2% 1 Pack (2 Cloths) TOPICAL ONE (03:05)
[2018-10-02] MEDS ORDERED: Sodium Chlor 0.9% Inj 500 ML IV.SIG SCH (04:00)
[2018-10-02] MEDS: Morphine Inj 4 MG/ML Vial IV.PUSH PRN (05:18)
[2018-10-02] MEDS: Acetaminophen 325 MG Tablet PO PRN (05:26)
[2018-10-02] MEDS ORDERED: Bupivacaine/Epinephrine Inj 0.25% 50 ML Vial ONE (07:10)
[2018-10-02] MEDS ORDERED: Clindamycin Inj 600 MG/4 ML Vial ONE (07:21)
--- NOTE | 2018-10-02 07:32 | P.PNIM ---
Subjective Interval history: The patient went for surgery she was seen after the surgery. She is in bed appears anxious. Patient says she would like to try anxiety medications as fall was unexpected and she feels anxious. Pain is fairly controlled by medications. No nausea or vomiting no diarrhea or constipation. Physical Exam Vital signs: Last Vital Signs Temp 99.8 F H 10/02/18 04:25 Pulse 80 10/02/18 04:25 Resp 18 10/02/18 05:46 BP 140/63 10/02/18 04:25 Pulse Ox 92 L 10/02/18 04:25 Intake & Output 09/30/18 10/01/18 10/02/18 10/03/18 06:59 06:59 06:59 06:59 Intake Total 1000 / 1000 480 / 480 Balance 1000 / 1000 480 / 480 Weight 67.3 kg Narrative: PE: GENERAL: Very pleasant middle-aged white female in no acute distress. CARDIOVASCULAR: Regular rate and rhythm. No obvious murmurs to auscultation. No chest tenderness to palpation. RESPIRATORY: No obvious rhonchi or wheezing. Clear to auscultation. Breath sounds equal bilaterally. GASTROINTESTINAL: Abdomen soft, non-tender, nondistended. BS normal. MUSCULOSKELETAL: Left drop foot. Left hip dressing CDI. Extremities without clubbing, cyanosis. NEUROLOGICAL: Awake, alert and oriented x4. No focal neurologic deficits. Moving both upper and lower extremities spontaneously. Results Labs CBC & Chem 7: 10/01/18 06:19 10/01/18 06:19 Assessment and Plan (1) Closed intertrochanteric fracture: Code(s): S72.143A - Displaced intertrochanteric fracture of unspecified femur, initial encounter for closed fracture Status: Acute (2) Fall: Code(s): W19.XXXA - Unspecified fall, initial encounter Status: Acute (3) Leukocytosis: Code(s): D72.829 - Elevated white blood cell count, unspecified Status: Acute Plan Fall s/p mechanical fall, no head trauma or LOC reported, no other injuries noted. Left Hip Fx: Hip X-ray w/ comminuted left intertrochanteric hip fracture, Dr. Antonio consulted, Refused surgery on 10/01/18. Patient agrees to surgery by Dr. Evans and status post surgical intervention on 10/02/18 Pain medications per pain scale Anxiety. Acute due to events status post mechanical fall. Ativan as needed. Leukocytosis: WBC 13, likely related to fall/injury, no obvious infectious etiology noted Patient with a h/o severe osteoporosis H/o poliomyelitis, at baseline ambulates with a walker. With the left foot drop. DVT Prophylaxis: Anticoagulation post op CM consulted for d/c planning as needed. Case discussed with the patient,. family at bedside, orthopedic doctor s/p surgery by Dr Evans 10/02/18 Progress Note: Quality VTE Deep Vein Thrombosis/Pulmonary Embolism Present on Admission: No
[2018-10-02] MEDS ORDERED: Post-op Orders (for Pharmacy) OTHER STA (08:18)
--- NOTE | 2018-10-02 08:18 | P.OP ---
- Preoperative Diagnosis (1) Closed intertrochanteric fracture of left hip Date of procedure: 10/02/18 Procedure: Left proximal femur reduction and intramedullary nail fixation Anesthesia: GETA Surgeon: Billy Appiah MD Pattern Room Attendant: CARMEN Cueto PA-C The surgical procedure was assisted by my physician sugar laboratory assistant. My P.A. presence was necessary throughout this case for the manipulation and positioning of the surgical extremity. My P.A. was assisting me throughout the duration of this procedure. The skill set of a physician sugar laboratory assistant was medically necessary to complete this procedure. During the surgical case the surgical coordinator was working at the back table and the physician sugar laboratory assistant was directly assisting me. Operation and Findings: Implants used: Biomet 11 mm x 340 mm troch nail Plan of activity: 50% weightbearing Patient was seen and evaluated preoperatively. The patient has significant hip pain from proximal femur fracture. The risk and benefits of surgery were discussed in depth with the patient to include bleeding, infection, nonunion, malunion, need for hip replacement, painful hardware, as well as medical competitions including blood clots, stroke, heart attack, and . Informed consent was obtained. Operative site was marked. Patient was brought to the operating room and placed on fracture table. IV sedation was administered by anesthesiologist. Timeout procedure was performed. Hip and leg were prepped with alcohol followed by DuraPrep and draped in the usual sterile fashion. IV antibiotics were given prior to incision. Procedure began with reduction of fracture. Traction was applied. The leg was manipulated to achieve reduction. Excellent reduction was achieved. Fluoroscopy was used to confirm reduction. A three inch incision was made proximal to the trochanter. Subcutaneous tissue was dissected bluntly. Guidepin was placed at the tip of the trochanter and advanced into the femoral canal. Fluoroscopy confirmed appropriate guidepin placement. A opening reamer was placed over the guidepin. A long ball tipped guide pin was now placed down the femoral canal into the center of the distal femur. The nail length was now measured. Fluoroscopy confirmed appropriate guidepin placement. Flexible reamers were now passed over the guidepin to ream the intramedullary canal. The nail was attached to the insertion handle. Nail was now placed over the guidepin into the femoral canal. Fluoroscopy confirmed appropriate nail placement. A second incision was made over the lateral thigh. Cannulas were placed through the insertion handle down to the femur. Guidepin was now placed through the femoral nail into the center of the femoral head. Fluoroscopy confirmed appropriate guidepin placement. Screw length was measured. Cannulated drill was placed over the guidepin. Appropriate length lag screw was now placed. Traction was released and compression was applied. The set screw was now tightened in dynamic mode. Next, using perfect [place] technique 1 distal interlocking screw was placed. Screw holes were predrilled and screw lengths were measured. Final fluoroscopy revealed well aligned fracture with well-placed hardware. Incision was closed with 3-0 Vicryl and osito. Sterile dressings were applied. Patient was awakened and transferred to recovery room.
[2018-10-02] MEDS ORDERED: Morphine Inj 4 MG/ML Vial IV.PUSH PRN (08:21)
[2018-10-02] MEDS ORDERED: GENTAMICIN IRRIGATION ONE ×2 (08:30)
[2018-10-02] MEDS ORDERED: SODIUM CHLORIDE 0.9% IRRIGATION ONE ×2 (08:30)
[2018-10-02] MEDS ORDERED: fentaNYL Citrate Inj 100 MCG/2 ML Ampul ONE (08:35)
[2018-10-02] MEDS ORDERED: *Ondansetron Inj 4 MG/2 ML Vial PERIprocedural Use ONLY ONE (08:46)
[2018-10-02] MEDS ORDERED: *morphine SULFATE 4 MG/ML PERIprocedure ONLY ONE (08:46)
[2018-10-02] MEDS ORDERED: Gentamicin Consult Pharmacy 1 EACH OTHER SCH (09:00)
[2018-10-02] MEDS: Calcium/Vitamin D 250/125 MG Tablet PO SCH ×2 (10:40→13:49)
[2018-10-02] MEDS: Senna/Docusate Sodium 8.6/50 MG Tablet PO SCH ×2 (11:10→20:21)
[2018-10-02] MEDS: Lisinopril 10 MG Tablet PO SCH (11:10)
[2018-10-02] MEDS ORDERED: LORazepam 0.5 MG Tablet PO ONE (12:31)
--- NOTE | 2018-10-02 13:07 | XR ---
EXAM DATE: 10/02/2018 1:05 PM EST AGE/SEX: 73 years / Female INDICATIONS: ORIF left femur fracture. CLINICAL DATA: This is the patient's subsequent encounter. Patient reports that signs and symptoms h ave been present for 3 days and indicates a pain score of Nonresponsive. MEDICAL/SURGICAL HISTORY: Non-responsive. Non-responsive. [place] [facility] [place]. . FINDINGS: Intramedullary ebony is present traversing the femur with proximal and distal fixation sc rews. There is excellent anatomical alignment of the bony structures. CONCLUSION: Intact postsurgical changes with gross anatomical alignment. Electronically signed by: Naomi Zimmer MD Board Certified Radiologist 10/02/2018 1:06 PM EST
[2018-10-02] MEDS: Enoxaparin Inj 30 MG/0.3 ML Syringe SQ SCH (20:21)
[2018-10-02] MEDS: LORazepam 0.5 MG Tablet PO PRN (21:29)
--- NOTE | 2018-10-03 06:29 | P.PNOP ---
Subjective Interval history: Resting comfortably with no new complaint Physical Exam Vital signs: Vital Signs 10/02/18 08:30 10/02/18 08:45 10/02/18 09:00 Temperature 97.4 F L Pulse Rate 81 75 75 Respiratory Rate 20 15 16 Blood Pressure 132/60 131/60 141/65 H Pulse Oximetry 100 99 99 10/02/18 09:10 10/02/18 09:12 10/02/18 12:00 Temperature 97.4 F L 97.1 F L Pulse Rate 78 71 Respiratory Rate 15 14 Blood Pressure 133/62 133/62 Pulse Oximetry 99 99 93 L 10/02/18 16:00 10/02/18 19:41 10/02/18 23:42 Temperature 97.9 F 98.4 F 97.8 F Pulse Rate 72 73 71 Respiratory Rate 14 18 18 Blood Pressure 129/58 L 130/60 115/58 L Pulse Oximetry 98 97 96 Intake & Output 10/02/18 10/02/18 10/03/18 06:59 18:59 06:59 Intake Total 1050 / 1050 Output Total Balance 1020 / 1020 Intake: Anesthesia Amount 1050 / 1050 Output: Estimated Blood Loss Other: # Voids 2 2 Date of Last Bowel Movement 09/29/18 09/30/18 09/30/18 Narrative: Left lower extremity: Clean dry dressings intact. Mild swelling. Intact distal pulses and good capillary refills Results - Labs CBC & Chem 7: 10/01/18 06:19 10/01/18 06:19 - Imaging Impressions Femur X-Ray 10/02/18 00:00 CONCLUSION: Intact postsurgical changes with gross anatomical alignment. Assessment and Plan - Assessment and Plan 73-year-old female with history of asthma, hypertension, polio. Uses walker at baseline secondary to polio. Left intertrochanteric femur fracture status post IM nail POD 1 Physical therapy 50% weightbearing left lower extremity Daily dressing changes beginning POD 2 Lovenox Incentive spirometry Case management for discharge plan Follow-up with Dr. Evans or PA in 2 weeks
[2018-10-03] MEDS: Lisinopril 10 MG Tablet PO SCH (09:13)
[2018-10-03] MEDS: Calcium/Vitamin D 250/125 MG Tablet PO SCH ×4 (09:14→18:34)
[2018-10-03] MEDS: Acetaminophen 325 MG Tablet PO PRN ×2 (09:15→18:37)
[2018-10-03] MEDS: Senna/Docusate Sodium 8.6/50 MG Tablet PO SCH ×2 (09:16→20:42)
[2018-10-03] MEDS: LORazepam 0.5 MG Tablet PO PRN ×2 (12:35→20:43)
--- NOTE | 2018-10-03 13:39 | P.PNIM ---
Subjective Interval history: Very anxious, tearful , she says she wants to go to [facility] rehab as she needs comprehensive care. No fever or chills. No n/v/ d.c. Physical Exam Vital signs: Last Vital Signs Temp 98 F 10/03/18 08:00 Pulse 76 10/03/18 08:00 Resp 20 10/03/18 08:00 BP 130/63 10/03/18 08:00 Pulse Ox 96 10/03/18 08:00 Intake & Output 10/01/18 10/02/18 10/03/18 10/04/18 06:59 06:59 06:59 06:59 Intake Total 1000 / 1000 480 / 480 1770 / 1770 0 / 0 Output Total 30 / 30 Balance 1000 / 1000 480 / 480 1740 / 1740 0 / 0 Weight 67.3 kg Narrative: GENERAL: Very pleasant middle-aged white female. Situational anxiety. CARDIOVASCULAR: Regular rate and rhythm. RESPIRATORY: No obvious rhonchi or wheezing. Clear to auscultation. Breath sounds equal bilaterally. GASTROINTESTINAL: Abdomen soft, non-tender, nondistended. BS normal. MUSCULOSKELETAL: Left foot: Dressing C/D/I. Drop foot left. NEUROLOGICAL: Awake, alert and oriented x4. No focal neurologic deficits. Moving both upper and lower extremities spontaneously. PSYCHIATRIC: Tearful. Patient is anxious. Insight and judgment normal. Results Labs CBC & Chem 7: 10/01/18 06:19 10/01/18 06:19 Assessment and Plan (1) Closed intertrochanteric fracture: Code(s): S72.143A - Displaced intertrochanteric fracture of unspecified femur, initial encounter for closed fracture Status: Acute (2) Fall: Code(s): W19.XXXA - Unspecified fall, initial encounter Status: Acute (3) Leukocytosis: Code(s): D72.829 - Elevated white blood cell count, unspecified Status: Acute Plan Fall s/p mechanical fall, no head trauma or LOC reported, no other injuries noted. Left Hip Fx: Hip X-ray w/ comminuted left intertrochanteric hip fracture, Dr. Antonio consulted, Refused surgery on 10/01/18. Patient agrees to surgery by Dr. Evans and status post surgical intervention on 10/02/18 Pain medications per pain scale Anxiety. Situational anxiety. Acute due to events status post mechanical fall. Ativan as needed. Leukocytosis: WBC 13, likely related to fall/injury, no obvious infectious etiology noted Patient with a h/o severe osteoporosis H/o poliomyelitis, at baseline ambulates with a walker. With the left foot drop. DVT Prophylaxis: Anticoagulation post op CM consulted for d/c planning as needed. Case discussed with the patient,. family at bedside, orthopedic doctor s/p surgery by Dr Evans 10/02/18 Patient wants to go to [facility] inpatient rehab Needs rehab at [place] CM is ff Dr [facility] rehab also is following Progress Note: Quality VTE Deep Vein Thrombosis/Pulmonary Embolism Present on Admission: No
[2018-10-03] MEDS: Enoxaparin Inj 30 MG/0.3 ML Syringe SQ SCH (20:43)
[2018-10-04] MEDS: LORazepam 0.5 MG Tablet PO PRN ×2 (06:22→15:33)
[2018-10-04] MEDS: Acetaminophen 325 MG Tablet PO PRN ×2 (06:56→11:05)
--- NOTE | 2018-10-04 07:32 | P.PNOP ---
Subjective Interval history: Resting comfortably with no new complaints. Physical Exam Vital signs: Vital Signs 10/03/18 08:00 10/03/18 12:00 10/03/18 16:00 Temperature 98 F 97.7 F 97.7 F Pulse Rate 76 73 69 Respiratory Rate 20 20 20 Blood Pressure 130/63 129/58 L 108/53 L Pulse Oximetry 96 97 97 10/03/18 19:52 10/03/18 23:52 10/04/18 04:00 Temperature 98.9 F 97.7 F 97.7 F Pulse Rate 80 70 75 Respiratory Rate 18 17 16 Blood Pressure 105/51 L 103/52 L 109/52 L Pulse Oximetry 95 95 95 Intake & Output 10/03/18 10/04/18 10/04/18 18:59 06:59 18:59 Intake Total 0 / 0 1939 Balance 0 / 0 1939 Weight 69.9 kg Intake: IV 0 / 0 NS Inj 1,000 ML @ 100 mls/hr IV 0 / 0 .CONT .Q10H [facility] Rx#:[id number] Oral 1939 Other: # Voids 4 3 Date of Last Bowel Movement 09/30/18 10/31/18 Narrative: Left lower extremity: Clean dry dressings intact. Minimal swelling. Good capillary refills and distal pulses. Chronic lack of muscular movement below the knee. Active movement of knee. Results - Labs CBC & Chem 7: 10/01/18 06:19 10/01/18 06:19 Assessment and Plan - Assessment and Plan 73-year-old female with history of asthma, hypertension, polio. Uses walker at baseline secondary to polio. Left intertrochanteric femur fracture status post IM nail POD 2 Physical therapy 50% weightbearing left lower extremity Daily dressing changes beginning POD 2 Lovenox Incentive spirometry Case management for discharge plan Orthopedically clear for discharge Follow-up with Dr. Evans or PA in 2 weeks
[2018-10-04] MEDS: Lisinopril 10 MG Tablet PO SCH (11:06)
[2018-10-04] MEDS: Senna/Docusate Sodium 8.6/50 MG Tablet PO SCH ×2 (11:07→21:05)
[2018-10-04] MEDS: Calcium/Vitamin D 250/125 MG Tablet PO SCH ×3 (11:08→21:05)
--- NOTE | 2018-10-04 16:08 | P.PNIM ---
Subjective Interval history: In nad. Less anxious today. Looking for other Rehab as not accepted to [facility]. Pain is fairly controlled by meds. No fever or chills. No n/v/d/c. Physical Exam Vital signs: Last Vital Signs Temp 98.4 F 10/04/18 12:00 Pulse 87 10/04/18 12:00 Resp 16 10/04/18 12:00 BP 110/55 L 10/04/18 12:00 Pulse Ox 98 10/04/18 12:00 Intake & Output 10/02/18 10/03/18 10/04/18 10/05/18 06:59 06:59 06:59 06:59 Intake Total 480 / 480 1770 / 1770 1939 Output Total 30 / 30 Balance 480 / 480 1740 / 1740 1939 Weight 69.9 kg Narrative: GENERAL: Very pleasant middle-aged white female. CARDIOVASCULAR: Regular rate and rhythm. RESPIRATORY: No obvious rhonchi or wheezing. Clear to auscultation. Breath sounds equal bilaterally. GASTROINTESTINAL: Abdomen soft, non-tender, nondistended. BS normal. MUSCULOSKELETAL: Left foot: Dressing C/D/I. Drop foot left. NEUROLOGICAL: Awake, alert and oriented x4. No focal neurologic deficits. Moving both upper and lower extremities spontaneously. PSYCHIATRIC: Less anxious. Insight and judgment normal. Results Labs CBC & Chem 7: 10/01/18 06:19 10/01/18 06:19 Assessment and Plan (1) Closed intertrochanteric fracture: Code(s): S72.143A - Displaced intertrochanteric fracture of unspecified femur, initial encounter for closed fracture Status: Acute (2) Fall: Code(s): W19.XXXA - Unspecified fall, initial encounter Status: Acute (3) Leukocytosis: Code(s): D72.829 - Elevated white blood cell count, unspecified Status: Acute Plan Fall s/p mechanical fall, no head trauma or LOC reported, no other injuries noted. Left Hip Fx: Hip X-ray w/ comminuted left intertrochanteric hip fracture, Dr. Antonio consulted, Refused surgery on 10/01/18. Patient agrees to surgery by Dr. Evans and status post surgical intervention on 10/02/18 Pain medications per pain scale Anxiety. Situational anxiety. Acute due to events status post mechanical fall. Ativan as needed. Leukocytosis: WBC 13, likely related to fall/injury, no obvious infectious etiology noted Patient with a h/o severe osteoporosis H/o poliomyelitis, at baseline ambulates with a walker. With the left foot drop. DVT Prophylaxis: Anticoagulation post op CM consulted for d/c planning as needed. Case discussed with the patient,. family at bedside, orthopedic doctor s/p surgery by Dr Evans 10/02/18 Patient wants to go to [facility] inpatient rehab, however is denied by insurance for [facility]. Needs rehab at [place] CM is ff Progress Note: Quality VTE Deep Vein Thrombosis/Pulmonary Embolism Present on Admission: No
--- NOTE | 2018-10-04 16:27 | P.DS ---
DS: Providers Date of admission: 09/30/18 19:25 Primary care physician: Syed Seals Mai, m.d., MD Consults: 09/30/18 19:28 Consult to Orthopedic Surgery Routine Consulting Provider: Syed Antonio Supervisor Packing Room:: Jasen Morillo Patient known to:: Jasen Morillo Reason for Consultation: Left Femur Fx CONSULT FOR AM Notified:: Service Spoke with:: MELE Date Notified:: 09/30/18 Time Notified:: 20:26 Ordering Provider: LEONARDO Brief History from admission: This is a 73-year-old female with a PMH of HTN, Asthma and h/o Polio who was brought to the ER by EMS for c/o left hip pain after a fall. Pt states she was getting ready to go out when she tripped over a scarf, landed on left hip, +severe pain, 10/10, non-radiating, worse w/ movement. H/o left femur hairline fracture January 2018 for which she follows w/ Dr. Morillo. No other injuries reported, no LOC or head trauma. On arrival, BP 150/67, HR 70, O2 sat 100% on 2L NC, Afebrile. WBC 13.1. Chemistry unremarkable. UA negative. Hip X-ray comminuted intertrochanteric left femoral fracture. Dr. Antonio consulted, plan is for surgery tomorrow. DS: Diagnosis Discharge Diagnosis (1) Closed intertrochanteric fracture: Status: Acute (2) Fall: Status: Acute (3) Leukocytosis: Status: Acute DS: Summary Fall s/p mechanical fall, no head trauma or LOC reported, no other injuries noted. Left Hip Fx: Hip X-ray w/ comminuted left intertrochanteric hip fracture, Dr. Antonio consulted, Refused surgery on 10/01/18. Patient agrees to surgery by Dr. Evans and status post surgical intervention on 10/02/18 Pain medications per pain scale Anxiety. Situational anxiety. Acute due to events status post mechanical fall. Ativan as needed. Leukocytosis: WBC 13, likely related to fall/injury, no obvious infectious etiology noted Patient with a h/o severe osteoporosis H/o poliomyelitis, at baseline ambulates with a walker. With the left foot drop. DVT Prophylaxis: Anticoagulation post op CM consulted for d/c planning as needed. Case discussed with the patient,. family at bedside, orthopedic doctor s/p surgery by Dr Evans 10/02/18 Patient wants to go to [place] inpatient rehab, however is denied by insurance for [place]. Patient improved. DC to rehab in stable condition to follow up as OP with PCP and consultants. Time Spent with Patient >Total time spent providing and/or coordinating discharge services: > 30 min Quality: VTE Deep Vein Thrombosis/Pulmonary Embolism Present on Admission: No Exam Narrative Exam Narrative: GENERAL: Very pleasant middle-aged white female. CARDIOVASCULAR: Regular rate and rhythm. RESPIRATORY: No obvious rhonchi or wheezing. Clear to auscultation. Breath sounds equal bilaterally. GASTROINTESTINAL: Abdomen soft, non-tender, nondistended. BS normal. MUSCULOSKELETAL: Left foot: Dressing C/D/I. Drop foot left. NEUROLOGICAL: Awake, alert and oriented x4. No focal neurologic deficits. Moving both upper and lower extremities spontaneously. PSYCHIATRIC: No anxiety. Insight and judgment normal. Results Impressions ITS Impressions Hip X-Ray 09/30/18 17:38 CONCLUSION: 1. Comminuted intertrochanteric left femoral fracture. Femur X-Ray 10/02/18 00:00 CONCLUSION: Intact postsurgical changes with gross anatomical alignment. Discharge Plan Discharge Disposition Patient Disposition: 03 Discharge to SNF Discharge Condition Condition: Stable Discharge Order Discharge Orders: Discharge Order (Routine); Ordered 10/05/18 Ordered By: Mayelin Montano Orthopedic Clear for Discharge (Routine); Ordered 10/05/18 Ordered By: Kasey Blake (Ashley) Discharge Details Anticipated Discharge Date: 10/05/18 Discharge Comment: DC when arrangements are done and cleared by ortho Physicians Team ED Provider: Lucretia Jang ED Midlevel Provider: Nellie Curtis Primary Care Provider: marleen Nelson Christophe C Attending Provider: Mayelin Montano Other Providers: Syed Antonio ; Billy Evans Rxs /Orders / Referrals /Forms Prescriptions: New hydrocodone-acetaminophen [[place]] 7.5-325 mg Tablet 1 tab PO Q4H Qty: 40 RF: 0 rivaroxaban [Xarelto] 10 mg Tablet 10 mg PO DAILY Qty: 14 RF: 0 cholecalciferol (vitamin D3) 5,000 unit Capsule 5,000 unit PO DAILY Qty: 60 RF: 0 calcium carbonate-vitamin D3 [Oyster Shell Calcium-Vit D3] 250-125 mg-unit Tablet 1 tab PO TID Qty: 60 RF: 0 Continue estradiol-norethindrone acet [Activella] 0.5-0.1 mg Tablet 0.5 tab PO DAILY RF: 0 atenolol 25 mg Tablet 25 mg PO BID PRN (Reason: Hypertension) RF: 0 lisinopril 10 mg Tablet 10 mg PO DAILY PRN (Reason: Hypertension) RF: 0 Zyrtec-D 10 mg PO QAM RF: 0 Ambulatory Orders / Order Sets / DME: Walker Folding (Routine) Location: Determined by Patient Ordered By: Fco Nowak Wheelchair (1 each) (Routine) Location: Determined by Patient Ordered By: Fco Nowak Referrals: marleen Nelson,Syed Seals MD [Primary Care Provider] - See Instructions ( Please call the physician's office to book the appointment to be seen within [2- 3 days].) Billy Evans MD [Physician] - See Instructions (2 weeks) Discharge Instructions Patient Printed Instructions: Hydrocodone/Acetaminophen (By mouth), Laxative, Stool Softeners (By mouth), Rivaroxaban (By mouth), How to Use an Incentive Spirometer (GEN), How to Choose and Use a Walker (GEN), Bandage Change (GEN), Hip Fracture (GEN), ORIF of Hip Fracture (DC) Additional Instructions: Your Health Problems: LEFT FEMUR FRACTURE Goals to Promote Your Health: * To prevent worsening of your condition * To maintain your health at the optimal level Directions to Meet Your Goals: * Take your medications as prescribed * Follow your dietary instruction * Follow activity as directed * Keep your appointments as scheduled * Take your immunizations and boosters as scheduled * If your symptoms worsen call your PCP * If no PCP go to Urgent Care or Emergency Room Smoking is dangerous to your health. Avoid second hand smoke. You may reach the 24-hour crisis hotline for domestic abuse at . Post Discharge Care Plan Care Plan Goals: Follow up as directed with your providers, CALL TO SCHEDULE APPOINTMENT WITH DR. EVANS WITHIN 1-2 WEEKS. Take medications as directed. PRESCRIPTIONS PROVIDED AT TIME OF DISCHARGE. DAILY DRY BANDAGE CHANGE. CLEAN EDITH WITH ALCOHOL AND APPLY A DRY PRIMAPORE DRESSING. YOU MAY ICE NEEDED. 50% WEIGHT BEARING. Status ED Status: Left Department
[2018-10-04] MEDS: Enoxaparin Inj 30 MG/0.3 ML Syringe SQ SCH (21:05)
[2018-10-05] MEDS: Sod Chloride 0.9% Inj 1,000 ML IV.CONT SCH ×3 (06:17→10:29)
--- NOTE | 2018-10-05 08:47 | P.PNOP ---
Subjective Interval history: Pt admits pain well controlled. Plans on going to rehab facility. Physical Exam Vital signs: Vital Signs 10/04/18 12:00 10/04/18 16:00 10/04/18 20:20 Temperature 98.4 F 98.1 F 99.0 F Pulse Rate 87 88 89 Respiratory Rate 16 16 17 Blood Pressure 110/55 L 112/59 L 107/51 L Pulse Oximetry 98 95 95 10/04/18 23:51 10/05/18 03:32 Temperature 98.2 F 97.7 F Pulse Rate 82 79 Respiratory Rate 17 17 Blood Pressure 114/57 L 107/51 L Pulse Oximetry 97 96 Intake & Output 10/04/18 10/05/18 10/05/18 18:59 06:59 18:59 Intake Total 1080 / 1080 Balance 1080 / 1080 Weight 68.7 kg Intake: Oral 1080 / 1080 Other: # Voids 2 Date of Last Bowel Movement 09/30/18 # Bowel Movements 1 Narrative: Left lower extremity: Clean dry dressings intact. Minimal swelling. Good capillary refills and distal pulses. Chronic lack of muscular movement below the knee. Active movement of knee. Results - Labs CBC & Chem 7: 10/01/18 06:19 10/01/18 06:19 Assessment and Plan - Assessment and Plan 73-year-old female with history of asthma, hypertension, polio. Uses walker at baseline secondary to polio. Left intertrochanteric femur fracture status post IM nail POD 3 Physical therapy 50% weightbearing left lower extremity Daily dressing changes Lovenox Incentive spirometry Case management for discharge plan to rehab Orthopedically clear for discharge Follow-up with Dr. Evans or PA in 2 weeks
[2018-10-05] MEDS: Calcium/Vitamin D 250/125 MG Tablet PO SCH ×4 (08:48→17:27)
[2018-10-05] MEDS: Lisinopril 10 MG Tablet PO SCH (08:48)
[2018-10-05] MEDS: Senna/Docusate Sodium 8.6/50 MG Tablet PO SCH (08:49)
[2018-10-05] MEDS: LORazepam 0.5 MG Tablet PO PRN ×2 (09:10→17:20)
[2018-10-05] MEDS: Acetaminophen 325 MG Tablet PO PRN ×2 (12:32→15:56)
--- NOTE | 2018-10-05 20:04 | P.PNIM ---
Subjective Interval history: In bed appears in nad. Says she feels much better and she is less anxious. No pain at the surgical site. NO fever or chills. No n/v/d/c. Physical Exam Vital signs: Last Vital Signs Temp 98.5 F 10/05/18 15:52 Pulse 80 10/05/18 15:52 Resp 16 10/05/18 15:52 BP 132/60 10/05/18 15:52 Pulse Ox 94 L 10/05/18 15:52 Intake & Output 10/03/18 10/04/18 10/05/18 10/06/18 06:59 06:59 06:59 06:59 Intake Total 1770 / 1770 1939 1080 / 1080 Output Total Balance 174 / 1739 1080 / 1080 Weight 69.9 kg 68.7 kg Narrative: GENERAL: Very pleasant middle-aged white female. CARDIOVASCULAR: Regular rate and rhythm. RESPIRATORY: No obvious rhonchi or wheezing. Clear to auscultation. Breath sounds equal bilaterally. GASTROINTESTINAL: Abdomen soft, non-tender, nondistended. BS normal. MUSCULOSKELETAL: Left foot: Dressing C/D/I. Drop foot left. NEUROLOGICAL: Awake, alert and oriented x4. No focal neurologic deficits. Moving both upper and lower extremities spontaneously. PSYCHIATRIC: Less anxious. Insight and judgment normal. Results Labs CBC & Chem 7: 10/01/18 06:19 10/01/18 06:19 Assessment and Plan (1) Closed intertrochanteric fracture: Code(s): S72.143A - Displaced intertrochanteric fracture of unspecified femur, initial encounter for closed fracture Status: Acute (2) Fall: Code(s): W19.XXXA - Unspecified fall, initial encounter Status: Acute (3) Leukocytosis: Code(s): D72.829 - Elevated white blood cell count, unspecified Status: Acute Plan Fall s/p mechanical fall, no head trauma or LOC reported, no other injuries noted. Left Hip Fx: Hip X-ray w/ comminuted left intertrochanteric hip fracture, Dr. Antonio consulted, Refused surgery on 10/01/18. Patient agrees to surgery by Dr. Evans and status post surgical intervention on 10/02/18 Pain medications per pain scale Anxiety. Situational anxiety. Acute due to events status post mechanical fall. Ativan as needed. Leukocytosis: WBC 13, likely related to fall/injury, no obvious infectious etiology noted Patient with a h/o severe osteoporosis H/o poliomyelitis, at baseline ambulates with a walker. With the left foot drop. DVT Prophylaxis: Anticoagulation post op CM consulted for d/c planning as needed. Case discussed with the patient,. family at bedside, orthopedic doctor s/p surgery by Dr Evans 10/02/18 Patient wants to go to [facility] inpatient rehab, however is denied by insurance for [facility]. Plan to DC to rehab when arrangements are done accepted CM is ff CM is ff Progress Note: Quality VTE Deep Vein Thrombosis/Pulmonary Embolism Present on Admission: No
[2018-10-05 21:46] VITALS: BP 112/50; PULSE 85; RESP 19; TEMP 98.1; O2SAT 96
== END 2018-10-05 20:30 | DRG 482 ==
LOC: NEPC 17:24 → NEDA 19:25 → N06 20:53
PROVIDERS: ADMIT Hospitalist; ATTEND Hospitalist
DX: F41.9 Anxiety disorder, unspecified; W01.0XXA Fall on same level from slipping, tripping and stumbling without subsequent striking against object, initial encounter; S72.142A Displaced intertrochanteric fracture of left femur, initial encounter for closed fracture; Z86.12 Personal history of poliomyelitis; Z79.899 Other long term (current) drug therapy; M81.0 Age-related osteoporosis without current pathological fracture; M21.372 Foot drop, left foot; M62.562 Muscle wasting and atrophy, not elsewhere classified, left lower leg; D72.829 Elevated white blood cell count, unspecified; I10 Essential (primary) hypertension; Z88.6 Allergy status to analgesic agent; J45.909 Unspecified asthma, uncomplicated; Z88.1 Allergy status to other antibiotic agents
CPT/HCPCS: 73502; 73552; 76000; 80053; 81001; 85025; 85610; 85730; 93005; 94150; 97110; 97116; 97162; 97530; 99285; C1713; C1776; J0131; J1650; J2250; J2270; J2405; J3010; J3370; J7030; J7120; P9047